=== PATIENT | female | born 1955 | race Caucasian/White ===

== ENCOUNTER 2019-09-20 09:17 | Day surgery (SDC) | payer BC ==
[2019-09-19 11:11] VITALS: BMI 35.4
[2019-09-20] MEDS ORDERED: Ketorolac Tromethamine 30 MG/ML VIAL ONE (09:22)
[2019-09-20] MEDS ORDERED: diphenhydrAMINE 50 MG/ML VIAL ONE (09:22)
[2019-09-20] MEDS ORDERED: PROPOFOL 200 MG/20 ML VIAL ONE (09:22)
[2019-09-20] MEDS ORDERED: Dexamethasone 20 MG/5 ML VIAL ONE (09:22)
[2019-09-20] MEDS ORDERED: PHENYLEPHRINE-NS 100 MCG/ML 10 ML SYRINGE ONE (09:22)
[2019-09-20] MEDS ORDERED: Ondansetron PF 4 MG/2 ML Vial ONE (09:22)
[2019-09-20] MEDS ORDERED: Bupivacaine 0.25% HCL 30 ML VIAL ONE (10:04)
[2019-09-20] MEDS ORDERED: EPINEPHrine 1 MG/ML AMP ONE (10:04)
[2019-09-20] MEDS ORDERED: Bacitracin Zinc Ointment 30 gm TUBE ONE (10:04)
[2019-09-20] MEDS ORDERED: Fentanyl 100 MCG/2 ML VIAL ONE (11:37)
[2019-09-20] MEDS ORDERED: Promethazine HCl 25 MG/ML VIAL ONE (14:47)
[2019-09-20] MEDS ORDERED: HYDROcodone/Acetaminophen 5/325 mg Tablet ONE (16:40)
--- NOTE | 2019-09-23 10:14 | OP ---
DATE OF PROCEDURE: 09/20/2019 PREOPERATIVE DIAGNOSES: 1. 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 2. Radical excision of left ear basal cell (5.3 cm including adequate margins). 3. Full-thickness skin graft, left ear (3 sq cm) (58021). DESCRIPTION OF PROCEDURE: Following induction of adequate anesthesia, the patient was prepped and draped in usual sterile fashion in supine position. 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 This was widely excised. This required dissecting almost the entirety of the ear cartilage off the lateral skin creating a skin flap. The dissection also went down to the mastoid fascia and back on the surrounding skin. Frozen section analysis came back as margins clear. The flap of skin was then closed to the more posterior wound bed with 3-0 Prolene suture. A sulcus was required superiorly to hold glasses. To create this sulcus, a full-thickness skin graft was grafted into the sulcus and secured with 5-0 chromic suture and 3-0 Prolene suture. A dressing was placed to secure the wound to the head. All air was also aspirated out beneath the flap. The patient tolerated procedure well. Job ID: [id number]
== END 2019-09-20 17:00 | disposition home or self-care (01) ==
LOC: SDC 09:17
PROVIDERS: ATTEND Plastic Surgery
PROC: 0HR3X73 Replacement of Left Ear Skin with Autologous Tissue Substitute, Full Thickness, External Approach (ICD-10-PCS; principal; 2019-09-20)
DX: C44.219 Basal cell carcinoma of skin of left ear and external auricular canal (principal); I10 Essential (primary) hypertension; Z87.891 Personal history of nicotine dependence; Z79.82 Long term (current) use of aspirin; Z79.899 Other long term (current) drug therapy
CPT/HCPCS: 88305; 88331; 88332; J0171; J0690; J1100; J1200; J1885; J2405; J2550; J2704; J3010; S0020